=== PATIENT | male | born 1970 | race Two or more races ===

== ENCOUNTER 2016-08-21 16:54 | Emergency (ER) | payer OTHER ==
[2016-08-21 17:51] VITALS: TEMP 98.3
--- NOTE | 2016-08-21 18:31 | DIRPT ---
CLINICAL DATA: Acute left wrist pain after fall on ice today. Initial encounter. EXAM: LEFT WRIST - COMPLETE 3+ VIEW COMPARISON: None. FINDINGS: Mildly displaced ulnar styloid fracture is noted. Moderately displaced and comminuted fracture is seen involving the distal left radius with intra-articular extension. This appears to be closed and posttraumatic. No soft tissue abnormality is noted. IMPRESSION: Mildly displaced ulnar styloid fracture. Moderately displaced and comminuted distal left radial fracture with intra-articular extension. Electronically Signed By: Alvaro Bermudez Jr, M.D. On: 08/21/2016 18:28
[2016-08-21 18:53] VITALS: BP 135/81; PULSE 73
[2016-08-21] MEDS ORDERED: OXYCODONE HCL 5 MG TABLET PO ONE (19:06)
--- NOTE | 2016-08-21 19:06 | EDPRACDOC ---
- General Information Chief Complaint: Wrist Pain Stated Complaint: WRIST INJURY Time Seen by Provider: 08/21/16 18:56 Information Source: Patient Mode of Arrival: Car Home Medications: Home Medications Cholecalciferol (Vitamin D3) [Vitamin D] 1,000 unit PO DAILY 05/25/15 Oxycodone Immediate Release [Oxy-Ir] 5 mg PO Q6H PRN #20 tab 08/21/16 Allergies/Adverse Reactions: Allergies Allergy/AdvReac Type Severity Reaction Status Date / Time No Known Allergies Allergy Verified 05/25/15 14:48 - History of Present Illness Onset: 30 MINUTES HPI: PT SLIPPED ON "BLACK ICE", FELL ONTO OUTSTRETCHED LEFT HAND, COMPLAINS OF PAIN AND DEFORMITY TO LEFT WRIST, PT IS RIGHT HAND DOMINANT, DENIES ANY OTHER INJURY. Location: Reports: Dorsal, Ulnar, Radial Dominant Side: Reports: Right Mechanism: Reports: FOOSH Circumstances: Reports: Fall Pain Severity: Reports: Moderate Associated Signs and Symptoms: Denies: Hand Pain, Forearm Pain, Elbow Pain ED Past Medical History - History Reviewed Yes Nurses notes reviewed and agree except as marked No Past Medical History: Yes Patient has no past medical history - Family Medical History Reports: Diabetes (MOTHER), Cancer (SISTER ? COLON CA AGE 47). Denies: Hypertension, Stroke, Cardiac Disorders - Social Medical History Smoking Status: Never smoker EDM Review of Systems - Review of Systems Constitutional: negative: Chills, Fever Neurological: negative: Dizziness, Numbness, Weakness Musculoskeletal: Wrist Integumentary: No Symptoms Reported - Physical Exam Constitutional: Alert (Awake), No apparent distress Oriented to: Time, Person, Place Last recorded Vital Signs: Last Vital Signs Temp 98.3 F 08/21/16 17:48 Pulse 73 08/21/16 18:53 Resp 18 08/21/16 18:53 BP 135/81 08/21/16 18:53 Pulse Ox 96 08/21/16 18:53 Oxygen Pulse Oxygen Saturation 96 O2 Device Room Air Oxygen Flow Rate Fraction of Inspired Oxygen ( FIO2) - HEENT Head: Normal ( normocephalic) Neck: Normal (FROM, trachea at midline) - Integumentary Skin: Normal, Warm, Dry Lymphatics: Normal (no adenopathy) - Neurologic Memory Impaired: Normal Motor Function: Normal (Normal tone, Pulses 2+ No cyanosis or edema, FROM) Cranial Nerve: Normal (CN II-X11 intact sensation, strength 5/5) Cerebellar: Normal Mood Description: Normal Perception: Normal ED Wrist Problem Exam Wrist Symptoms: Swelling, Deformity, Limited ROM, Moderate Tenderness Hand Symptoms: Normal. negative: Swelling, Deformity Forearm Symptoms: Normal. negative: Swelling, Deformity Distal Function/Circulation: Normal, Capillary Refill. negative: Motor Deficit , Pulse Deficit, Sensory Deficit - Integumentary Skin: Normal ED Procedures - Splinting 1st splint Location: LEFT WRIST Hand-Made Type: orthoglass Splint: sugar-tong Pre-Proc Neuro Vasc Exam: normal Post-Proc Neuro Vasc Exam: normal Other Devices: Sling ED Wrist Problem MDM - Differential Diagnosis Differential Diagnosis: Fracture-Radius/Ulna - Diagnostic Imaging LEFT WRIST Image interpreted by: Radiologist Diagnostic Imaging Comments: LEFT WRIST - COMPLETE 3+ VIEW COMPARISON: None. FINDINGS: Mildly displaced ulnar styloid fracture is noted. Moderately displaced and comminuted fracture is seen involving the distal left radius with intra-articular extension. This appears to be closed and posttraumatic. No soft tissue abnormality is noted. IMPRESSION: Mildly displaced ulnar styloid fracture. Moderately displaced and comminuted distal left radial fracture with intra-articular extension. Decision Time to Discharge: 19:34 - Departure Disposition: Home Condition: Stable Final Diagnosis: LEFT ULNAR STYLOID FRACTURE Fracture of left distal radius Qualifiers: Encounter type: initial encounter Fracture type: closed Fracture morphology: unspecified fracture morphology Qualified Code(s): S52.502A - Unspecified fracture of the lower end of left radius, initial encounter for closed fracture Instructions: Wrist Fracture in Adults (ED) Education/Counseling Given To: Patient Education/Counseling Given Regarding: Diagnosis, Treatment, Prognosis, Follow Up Referrals: Omkar Perez MD [Staff Physician] - One Week Prescriptions: Oxycodone Immediate Release [Oxy-Ir] 5 mg PO Q6H PRN #20 tab PRN Reason: Pain Additional Instructions: Fracture/Sprain: Elevate affected area as much as possible, apply cold compresses 20 mins at a time as needed for pain or swelling, wear splint until you follow up with orthopedics.
== END 2016-08-21 19:40 | disposition home or self-care (01) ==
LOC: EDMC 16:54
DX: S52.612A Displaced fracture of left ulna styloid process, initial encounter for closed fracture (principal); S52.502A Unspecified fracture of the lower end of left radius, initial encounter for closed fracture; W00.0XXA Fall on same level due to ice and snow, initial encounter
CPT/HCPCS: 29125; 73110; 99283; J3490

== ENCOUNTER → 2016-08-25 | Day surgery (SDC) | payer OTHER ==
--- NOTE | 2016-08-24 07:38 | SC.ANESEVA ---
Anesthesia Eval & Plan ([facility]) - Medications/Allergies Allergies: Allergies No Known Allergies Allergy (Verified 05/25/15 14:48) Current Medication List: Reviewed - Focused Physical Exam NPO since: Since after Midnight Mallampati: Class I Thyromental Distance: Greater than 3 Neck: Full Range of Motion Dental: Normal - no significant findings Cardiovascular/Chest: Normal (RRR no mumurs or rubs.) Respiratory: Lungs clear. negative: Wheezing Any problems with anesthesia, including nausea and vomiting?: No Any relatives with a history of Malignant Hyperthermia?: No Other: Diagnoses OTH INTARTIC FRACTURE OF LOWER END OF LEFT RADIUS, INIT (08/25/16) Problem List Problem Status Onset Fracture of left distal radius Acute Allergies Allergy/AdvReac Type Severity Reaction Status Date / Time No Known Allergies Allergy Verified 05/25/15 14:48 Home Medications Medication Instructions Recorded Last Taken Type Cholecalciferol (Vitamin D3) 1,000 unit PO DAILY 05/25/15 05/24/15 07:00 History [Vitamin D] Oxycodone Immediate Release 5 mg PO Q6H PRN #20 tab 08/21/16 Unknown Rx [Oxy-Ir] Height and Weight Patient's height 5 ft 7 in Patient's weight 57.924 kg BMI 20.0 - Anesthetic Plan Anesthesia Type: General, Post-Op Block- for Pain Control ASA Class: 2 - Focused Review of Systems Cardiac History: No: Hx Cardiac Disorders HEENT: Yes: Hx Vision Problem (GLASSES), Other HEENT Problems Respiratory: Yes: Hx Snoring Gastrointestinal: No: Hx Gastrointestinal Disorders Neurological/Musculoskeletal: No: Hx Neurological Disorders Blood/Autoimmune: No: Hx AIDS, Hx Hepatitis (type) Smoking Status: Never smoker
--- NOTE | 2016-08-24 07:40 | PCM.PROCED ---
Procedure Note DATE OF PROCEDURE: 08/25/16 PREOPERATIVE DIAGNOSIS: Post-operative Pain Control. POSTOPERATIVE DIAGNOSIS: Same PROCEDURE: Brachial Plexus Block at interscalene PERFORMING PROVIDER: Meño Romero Jr, MD TIME OUT: Completed MEDICATIONS: 30cc of Bupivacaine 0.5% Plain NEEDLE: STIMUPLEX 21G X 2" STERILE BARRIERS: Cap, mask, sterile gloves used. COMPLICATIONS: None. BLOOD LOSS: 0 cubic centimeters. PROCEDURE FINDINGS AND TECHNIQUE: At the request of the Operative Surgeon and patient, a Brachial Plexus Block was performed for post-operative pain relief. Risk, benefits and alternatives of the procedure were explained. Informed consent was obtained and surgical site confirmed with patient and chart. Time out was performed. Pulse oximetry, EKG and BP monitoring were established.. The left neck was prepped in a sterile manner. The Brachial plexus was visualized by ultrasound. A Stimuplex needle was inserted in the proximity of the nerves. Under direct visualization local anesthetic was injected in incremental volumes of 5 ml with negative aspirations throughout. There was no pain on injection. B-Smart manometer used. A peripheral nerve stimulator was used to assist in localizing the brachial plexus. Appropriate paresthesia and/or muscle response was noted at 0.5mA current. No muscle response noted at 2mA or less. Patient tolerated the procedure well without complications and the case was continued under general anesthesia as was the request of the patient.
[2016-08-24 11:27] VITALS: BMI 20.1
[~2016-08-25] MED LIST: BUPIVACAINE 0.25%-EPINEPHRINE 1:200,000 30 ML INF ONE; DEXAMETHASONE 4 MG/ML VIAL IV PRN; DEXAMETHASONE 4 MG/ML VIAL ONE; DIAZEPAM 5 MG TAB PO PRN; FENTANYL 100 MCG/2 ML VIAL IV PRN; FENTANYL 100 MCG/2 ML VIAL ONE; HYDROCODONE 5 MG/ACETAMIN 325 MG TAB PO PRN; KETOROLAC TROMETH 30 MG/ML VIAL IV PRN; KETOROLAC TROMETH 30 MG/ML VIAL ONE; LABETALOL 20 MG/4 ML SYRINGE IV PRN; LR 1,000 ML IV ONE; LR 1,000 ML IV SCH; MIDAZOLAM 2 MG/2 ML VIAL ONE; NS 1,000 ML IV SCH; NS 250 ML IV SCH; ONDANSETRON HCL 4 MG/2 ML VIAL IV PRN; ONDANSETRON HCL 4 MG/2 ML VIAL ONE; PROPOFOL 200 MG/20 ML VIAL IV ONE; SCOPOLAMINE TRANSDERMAL PATCH TOP PRN; hydrALAZINE 20 MG/ML VIAL IV PRN
--- NOTE | 2016-08-25 12:14 | PCM.DCS92 ---
Discharge Outpatient Note Physician Follow up/Referrals: Allan No MD [Staff Physician] - Listed Time Additional Instructions: Instructions given: 08/25/16 Prescriptions (given at the office) Diet as tolerated Discharge Instructions: * Apply ice to the surgical site for 15-20 minutes out of each hour while awake for the first 2 days post-op, then apply as often as needed to control swelling and pain * Elevate the surgical extremity above the heart while sitting or lying down * Keep splint clean and dry * Non weight bearing LUE * Take stool softener while taking pain medication Follow up in office as scheduled - Call office for any additional concerns. ) Follow up with Physical therapy as scheduled
--- NOTE | 2016-08-25 12:16 | HIMOPRPT ---
DATE OF PROCEDURE: August 25, 2016 PREOPERATIVE DIAGNOSES: Left intra-articular 4 part distal radius fracture POSTOPERATIVE DIAGNOSES: Same PROCEDURE: Open reduction internal fixation of left distal radius fracture FINDINGS: Significant dorsal comminution. Intra-articular extension of Kumar fragment. SPECIMENS REMOVED: None. ESTIMATED BLOOD LOSS: 10 cc ANESTHESIA: General COMPLICATIONS: None. TOURNIQUET TIME: 42 minutes at 250 mmHg. IMPLANTS: [place] intermediate 4 hole distal locking plate with a total of 7 distal locking and 3 proximal nonlocking screws SURGEON: Allan No MD. GRAPHIC DESIGN TEACHER: KOFFI Whitfield. SIGNIFICANT HISTORY, INDICATIONS, AND CONSENT: Placido is a 46 a-year-old male status post mechanical fall several days ago sustaining a highly comminuted left distal radius fracture. After evaluation in the office showing more than 20 of dorsal angulation with intra-articular extension and dorsal comminution it was decided the patient would likely benefit from surgical intervention to include open reduction internal fixation with potential decrease risk of malunion potentially improving senior design engineering specialist strength, decreased risk of posttraumatic osteoarthritis, and deformity. OPERATION IN DETAIL: Patient was seen in the preop holding area with the left distal radius was signed and consent was reviewed.Patient was then taken to the operating room and placed in the supine position on the operating table. SCDs were placed on bilateral lower extremities. Patient 's left upper extremity was sterilely prepped and draped in the usual orthopedic fashion. Mild sedation was provided by anesthesia. Patient received prior infraclavicular block. Monitoring devices were placed in standard fashion. The left upper extremity was placed on an arm board with a tourniquet placed on the arm in a well-padded position. All bony prominences were padded. A time-out was performed. Patient received prophylactic antibiotics. Consensus was reached amongst the participants in the OR suite. Next, a standard FCR approach to the left distal radius was made with sharp dissection through skin after Esmarch was used to exsanguinate the limb and tourniquet raised to 250 mm of mercury. The tendon sheath of the FCR tendon was released and retracted ulnarly. Posterior aspect of the tendon sheath was then also Released. Next the radial artery was identified and pronator quadratus was elevated gently off the radial aspect of the distal radius and flapped ulnarly. The fracture was clearly visualized and using a [place] elevator the fracture was mobilized. It was then used to clear the fracture site of fracture hematoma and interposed tissue. Next and open reduction was performed and our plate was provisionally fixed with olive stop K-wires. The reduction was confirmed to be in acceptable position with plate appropriately placed on both AP and lateral views. We then fixed the fracture proximally a nonlocking screw to bring the plate to the bone. This was again identified as an acceptable reduction. We then placed a total of 7 locking distally with 3 nonlocking screws proximally. Again radiographic evaluation revealed acceptable reduction with no intra-articular placement of screws and implants in appropriate position. Zoroastrian of radial height, inclination, and volar tilt were performed. The DRUJ was tested and found to be stable. Our instruments were then removed and thorough irrigation of the wound was performed. Tourniquet was released and hemostasis performed with Bovie cautery. 0 Vicryl suture was used to loosely repair pronator quadratus distally. We then used 2 0 Monocryl for subcuticular closure and 3 O nylon for skin. Patient was placed in a sterile soft tissue dressing and a volar splint for soft tissue rest. Was then placed in a sling, aroused by anesthesia, and taken to the postanesthesia care unit in stable condition. PLAN: Patient will be discharged home when okay with anesthesia. Prescriptions have been provided for p.r.n. pain, constipation, and nausea and vomiting. Nonweightbearing left upper extremity. Okay to begin finger motion immediately. Return to clinic postop day 10 for suture removal and wound check.
[2016-08-25 14:27] VITALS: TEMP 97.2
[2016-08-25 15:33] VITALS: BP 145/92; PULSE 65
--- NOTE | 2016-08-28 10:05 | SC.ANESPOS ---
Post-Anesthesia Note LOC: Fully Awake Post-Anesthesia Assessment: Awake, Returned to Baseline, Hemodynamically Stable , Pain Control Adequate Phase I & II Recovery Complete: Yes Apparent Anesthesia Complication: No : N - Vital Signs Blood Pressure: 145/92 Pulse: 65 Resp Rate: 16 O2 Sat: 99 Temp: 97.2 F
== END ==
LOC: CPSC 09:55
PROVIDERS: ATTEND Orthopaedic Surgery
PROC: 0PSJ04Z Reposition Left Radius with Internal Fixation Device, Open Approach (ICD-10-PCS; principal; 2016-08-25 11:30)
DX: S52.572A Other intraarticular fracture of lower end of left radius, initial encounter for closed fracture (principal); X58.XXXA Exposure to other specified factors, initial encounter
CPT/HCPCS: 25608; J1100; J1885; J2250; J2405; J2704; J3010; J3490